=== PATIENT | female | born 1950 | race Caucasian/White ===

== ENCOUNTER 2016-12-15 08:33 | Inpatient (IN) | payer BC ==
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
[~2016-12-15 08:33] MED LIST: Buffered Lidocaine 1% SYRIN* 3 ML/SYR SYRINGE INTRADERM ONE; Dexamethasone IV* 4 MG/ML 1 ML (4 MG) IV SLOW PU ONE; Famotidine IV* 10 MG/ML 2 ML (20 mg) IV ONE
[2016-12-15] MEDS ORDERED: fentaNYL* 50 MCG/ML 2 ML VIAL (100 MCG VIAL) ONE ×3 (08:36→12:05)
[2016-12-15] MEDS ORDERED: HYDROmorphone* 1 MG/ML 1 ML SYR ONE ×2 (08:36→12:04)
[2016-12-15] MEDS ORDERED: Morphine PF AMP (0.5MG/ML)* 5 MG/10 ML AMP ONE (08:37)
[2016-12-15] MEDS ORDERED: Midazolam* 1 MG/ML 2 ML VIAL (2 MG) ONE (08:37)
[2016-12-15] MEDS ORDERED: Famotidine IV* 10 MG/ML 2 ML (20 mg) ONE (08:53)
[2016-12-15] MEDS ORDERED: Clindamycin 900 MG IVPREMIX(* 900 MG/50 ML SDV IV ONE (08:53)
[2016-12-15] MEDS ORDERED: Dexamethasone IV* 4 MG/ML 1 ML (4 MG) ONE (08:53)
[2016-12-15] MEDS ORDERED: KCL 10 MEQ/50 ML IVPREMIX* 10 MEQ/50 ML BAG IV ONE (10:58)
[2016-12-15] MEDS ORDERED: Propofol* 10 MG/ML 20 ML BTL IV PUSH ONE (13:54)
[2016-12-15] MEDS ORDERED: Dexmedetomidine* 200 MCG/2 ML 2 ML VIAL ONE (13:54)
[2016-12-15] MEDS ORDERED: Bupivacaine 0.5% SDV PF* 30 ML VIAL ONE (13:54)
[2016-12-15] MEDS ORDERED: DiMENhydriNATE IV* 50 MG/ML VIAL IV PUSH PRN ×2 (13:55→13:57)
[2016-12-15] MEDS ORDERED: Scopolamine 1.5 mg* PATCH TRANSDERM PRN (13:55)
[2016-12-15] MEDS ORDERED: diPHENhydraMINE IV* 50 MG/ML 1 ml VIAL (BENADRYL) IV PRN (13:55)
[2016-12-15] MEDS ORDERED: Nalbuphine* 20 MG/ML 1 ML VIAL IV PRN (13:55)
[2016-12-15] MEDS ORDERED: Scopolomine PATCH Remove* 1 NOTE MISC PATCH OFF PRN (13:55)
[2016-12-15] MEDS ORDERED: oxyCODONE/Acetamin 5/325 MG* TAB PO PRN (13:55)
[2016-12-15] MEDS ORDERED: Naloxone* 0.4 MG/ML 1 ML VIAL IV PRN (13:55)
[2016-12-15] MEDS ORDERED: Ondansetron INJ* 2 MG/ML VIAL IV PRN ×2 (13:55→13:57)
[2016-12-15] MEDS ORDERED: PROCHLORPERAZINE INJ 5 MG/ML 2 ML VIAL IV PRN ×2 (13:55→13:57)
[2016-12-15] MEDS ORDERED: fentaNYL* 50 MCG/ML 2 ML VIAL (100 MCG VIAL) IV PRN (13:57)
[2016-12-15] MEDS ORDERED: Acetaminophen TAB* 325 MG PO PRN (14:02)
[2016-12-15] MEDS ORDERED: LACTULOSE* 30 ML UDC PO PRN (14:02)
[2016-12-15] MEDS ORDERED: Bisacodyl SUPP* 10 MG SUPP PR PRN (14:02)
[2016-12-15] MEDS ORDERED: Magnesium Hydroxide LIQ* 30 ML UDC PO PRN (14:02)
[2016-12-15] MEDS ORDERED: Polyethylene Glycol 3350* 17 GM PACKET PO PRN (14:02)
[2016-12-15] MEDS ORDERED: Nitroglycerin TAB 0.4 MG* 0.4 MG TAB SL PRN (14:07)
[2016-12-15] MEDS ORDERED: Albuterol HFA INHALER* 8 gm MDI INH PRN (14:07)
--- NOTE | 2016-12-15 14:38 | RAD ---
Indication: Post op total knee replacement. Comparison: November 21, 2016 Technique: Portable AP and cross table lateral views LEFT knee. Report: Status post total knee replacement. Surgical drain in place. Post-op fluid and gas is seen in the joint space and anterior subcutaneous tissues. Alignment is anatomic. No periprosthetic fracture evident. IMPRESSION: Normal post-op appearance following total knee replacement.
[2016-12-15] MEDS ORDERED: Lisinopril TAB* 10 MG PO SCH (18:00)
[2016-12-15] MEDS ORDERED: Warfarin TAB(*) 6 MG PO ONE (18:30)
[2016-12-15] MEDS: Clindamycin 600 MG IVPREMIX(* 600 MG/50 ML SDV IV SCH (19:41)
[2016-12-15] MEDS: Atorvastatin* 80 MG TAB PO SCH (19:42)
[2016-12-15] MEDS: Docusate CAP* 100 MG PO SCH (19:42)
[2016-12-15] MEDS: Diltiazem CD CAP* 120 MG PO SCH (19:49)
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
[2016-12-16] MEDS ORDERED: diPHENhydraMINE IV* 50 MG/ML 1 ml VIAL (BENADRYL) IV PRN (03:45)
[2016-12-16] MEDS ORDERED: Ondansetron TAB* 4 MG PO PRN (03:45)
[2016-12-16] MEDS ORDERED: Morphine INJ* 2 MG/ML 1 ML SYRINGE IV PRN (03:45)
[2016-12-16] MEDS ORDERED: oxyCODONE TAB* 5 MG TAB PO PRN (03:45)
[2016-12-16] MEDS: Clindamycin 600 MG IVPREMIX(* 600 MG/50 ML SDV IV SCH ×2 (04:30→12:22)
[2016-12-16] MEDS: oxyCODONE/Acetamin 5/325 MG* TAB PO PRN ×4 (06:11→20:13)
--- NOTE | 2016-12-16 07:32 | PN ---
Progress Note - Progress Note SOAP: Subjective: Pt. is alert, pain is controlled. Objective: LLE - drain removed, tip intact with 350 cc ss drainage. distally +df/pf, full sens lt, 2+ dp pulse. Vital Signs: Temp Pulse Resp BP Pulse Ox 97.6 F 84 16 104/48 100 12/16/16 04:32 12/16/16 04:32 12/16/16 06:11 12/16/16 04:32 12/16/16 04:32 Laboratory Results - last 24 hr 12/15/16 12/15/16 10:17 10:44 INR (Anticoag Therapy) 1.07 Potassium 3.7 Assessment: 66 yo F pod 1 s/p LTKA Plan: wbat lle pt/ot will check am labs plan d/c to home tomorrow am coumadin with lovenox bridge
[2016-12-16 07:46] LABS: Hematocrit 28 % (35-47); Hemoglobin 9.8 g/dl (12.0-16.0)
[2016-12-16 08:01] LABS: BUN/Creatinine Ratio 21.6 (8-20); Calcium 8.7 mg/dL (8.6-10.3); EGFR African American 101.6 (>60); Potassium 3.8 mmol/L (3.5-5.0)
[2016-12-16] MEDS: Magnesium Oxide TAB* 400 MG PO SCH (08:50)
[2016-12-16] MEDS: Docusate CAP* 100 MG PO SCH ×2 (08:50→20:13)
[2016-12-16] MEDS: Diltiazem CD CAP* 120 MG PO SCH ×2 (08:50→20:13)
[2016-12-16] MEDS: Nitroglycerin 0.2 MG/HR PATCH* (5 MG) TRANSDERM SCH (08:50)
[2016-12-16] MEDS: Metoprolol Tartrate TAB* 50 mg PO SCH ×2 (08:50→09:47)
[2016-12-16] MEDS ORDERED: Spironolactone TAB* 25 MG PO SCH (09:00)
[2016-12-16] MEDS: Metoprolol Succinate XL TAB* 25 MG PO SCH (10:27)
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
[2016-12-16] MEDS: Spironolactone TAB* 25 MG PO SCH (12:21)
[2016-12-16] MEDS: Enoxaparin(*) 30 MG/0.3 ML SYR SUBCUT SCH (12:22)
[2016-12-16] MEDS ORDERED: Warfarin TAB(*) 4 MG PO ONE (17:00)
[2016-12-16] MEDS: Atorvastatin* 80 MG TAB PO SCH (20:12)
[2016-12-16] MEDS ORDERED: Nitro Patch/OINT Remove PATCH OFF SCH (21:00)
[2016-12-17] MEDS: oxyCODONE/Acetamin 5/325 MG* TAB PO PRN ×3 (01:46→13:54)
[2016-12-17 08:24] LABS: Hematocrit 28 % (35-47); Hemoglobin 9.7 g/dl (12.0-16.0)
--- NOTE | 2016-12-17 08:30 | PN ---
Progress Note - Progress Note SOAP: Subjective: Pt. is alert, reports feeling great. Objective: LLE - dressing changed, inc c/d/i. distally nvi. Vital Signs: Temp Pulse Resp BP Pulse Ox 98.0 F 80 17 101/62 98 12/17/16 07:06 12/17/16 07:06 12/17/16 07:06 12/17/16 07:06 12/17/16 07:06 Vital Signs: Temp Pulse Resp BP Pulse Ox 98.0 F 80 17 101/62 98 12/17/16 07:06 12/17/16 07:06 12/17/16 07:06 12/17/16 07:06 12/17/16 07:06 Laboratory Results - last 24 hr 12/17/16 12/17/16 08:05 08:05 Hgb 9.7 L Hct 28 L INR (Anticoag Therapy) 1.56 H Assessment: 66 yo F pod 2 s/p LTKA Plan: wbat pt/ot give lovenox dose today, 10 mg coumadin tonight. d/c to home today
[2016-12-17] MEDS: Docusate CAP* 100 MG PO SCH (08:42)
[2016-12-17] MEDS: Nitroglycerin 0.2 MG/HR PATCH* (5 MG) TRANSDERM SCH (08:42)
[2016-12-17] MEDS: Diltiazem CD CAP* 120 MG PO SCH (08:43)
[2016-12-17] MEDS: Spironolactone TAB* 25 MG PO SCH (08:44)
[2016-12-17] MEDS: Metoprolol Succinate XL TAB* 25 MG PO SCH (08:44)
[2016-12-17] MEDS: Magnesium Oxide TAB* 400 MG PO SCH (08:44)
[2016-12-17] MEDS ORDERED: Furosemide TAB* 40 MG PO SCH (09:00)
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
[2016-12-17] MEDS: Enoxaparin(*) 30 MG/0.3 ML SYR SUBCUT SCH (11:33)
[2016-12-17 12:43] VITALS: BP 106/65
--- NOTE | 2016-12-20 01:05 | DS ---
DISCHARGE SUMMARY: DATE OF ADMISSION: 12/15/16 DATE OF DISCHARGE: 12/17/16 ADMITTING DIAGNOSES: 1. Left knee osteoarthritis. 2. Chronic pain syndrome. 3. Peripheral artery disease. 4. Congestive heart failure. 5. Hyperlipidemia. 6. Hypertension. 7. Obstructive sleep apnea. DISCHARGE DIAGNOSES: 1. Status post left knee total arthroplasty. 2. Chronic pain syndrome. 3. Peripheral artery disease. 4. Congestive heart failure. 5. Hyperlipidemia. 6. Hypertension. 7. Obstructive sleep apnea. PROCEDURE: Left total knee arthroplasty. CONSULTANTS: 1. Physical Therapy. 2. Occupational Therapy. 3. Medicine. BRIEF HISTORY: Ms. Rogel is a 66-year-old female with severe degenerative osteoarthritis of her left knee. She failed conservative treatment measures and elected to undergo a left total knee arthroplasty on 12/15/[address] Jones. HOSPITAL COURSE: Ms. Rogel was admitted to [facility] on 12/15/16. She underwent an uncomplicated left total knee arthroplasty. Postoperatively, she recovered on the short-stay surgical unit. Her Grossman catheter was removed on postoperative day 1 and she was able to urinate on her own. The drain from the knee was also removed on postoperative day 1. Postoperative day 2, she was able to have a bowel movement and she advanced to regular diet without difficulty. The pain was well controlled with Percocet. She was restarted on home medications. Her vital signs and labs remained stable. She was able to bear her weight as tolerated on the left lower extremity. She advanced appropriately with physical therapy and occupational therapy. Her DVT prophylaxis was bridged with Lovenox and Coumadin until she reached therapeutic INR range. By postoperative day #2, she was orthopedically and medically stable for discharge home with services. PHYSICAL EXAMINATION: General: On examination, the patient is noted to be calm and cooperative in no acute distress. She is alert and oriented x3. Vital signs: On the day of discharge, temperature 98.0 degrees Fahrenheit, pulse rate 79, respirations 18, blood pressure 125/48. Extremities: Examination of the left lower extremity demonstrates a dressing overlying the left knee which is clean, dry and intact. There is mild swelling about the knee but it is compressible. Her calf is soft and nontender. Distally she has +2 palpable dorsalis pedis pulse, 5/5 ankle dorsiflexion, plantarflexion and strength. Sensation is intact to light touch. LABORATORY DATA: On the day of discharge, hemoglobin 9.7, hematocrit 28, INR 1.56. RADIOGRAPHS: Postoperative radiographs of the left knee demonstrate a left total knee arthroplasty with satisfactory prosthesis placement and no acute bony abnormalities. DISCHARGE MEDICATIONS: 1. Albuterol inhaler p.r.n. 2. Vitamin B12, 1000 mcg daily. 3. EpiPen as needed. 4. Aldactone 25 mg daily. 5. Magnesium oxide 400 mg daily. 6. Metoprolol ER 25 mg daily. 7. Diltiazem CD 120 mg twice a day. 8. Nitroglycerin 0.2 mg per hour to chest wall in the a.m. and removed prior to bedtime. 9. Lipitor 80 mg q.h.s. 10. Lasix 40 mg every other day. 11. Nitrostat 0.4 mg one every 5 minutes p.r.n. 12. Coenzyme Q10, 100 mg daily. 13. Cyanocobalamin 1000 mcg intramuscularly monthly. 14. Folic acid 100 mcg 1 tablet daily. 15. Percocet 5/325, 1 to 2 tabs p.o. q. 4 to 6 hours p.r.n. pain. 16. Coumadin dosage as directed. 17. Colace up to 3 times a day p.r.n. constipation. CONDITION ON DISCHARGE: Stable. DISCHARGE INSTRUCTIONS: Ms. Rogel is a 66-year-old female postoperative day 2, status post left total knee arthroplasty which was uncomplicated. She is orthopedically and medically stable to be discharged home with services. She has stable vital signs and labs and has been restarted on her home medications. She will take 10 mg of Coumadin tonight, which is Monday. Her target INR range is 2.5 to 3 secondary to cardiac issues. She will contact the office on Monday with an INR update. 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 At that time her dosage will be adjusted. Then we will plan on having her recheck her INR on Mondays and . She will remain weightbearing as tolerated on the left lower extremity. She will have home physical therapy twice a day. She will take Percocet for pain control and take Colace up to 3 times a day for constipation. She will follow up in the office with Dr. Jones in 10 to 14 days for incision check and suture removal. She was instructed to call Dr. Jones or go immediately to the emergency room should she develop any new fever, chills, incision pain, redness or drainage. She was instructed to go immediately to the emergency room should she develop chest pain or shortness of breath. KOURTNEY SINCLAIR [id number]/[facility] #: [id number] MANNY
== END 2016-12-17 14:50 | disposition home health service (06) | DRG 302 ==
LOC: AA 08:33 → SSU 14:02
PROVIDERS: ADMIT Orthopaedic Surgery Adult Reconstructive Orthopaedic Surgery; ATTEND Orthopaedic Surgery Adult Reconstructive Orthopaedic Surgery
PROC: 0SRD0J9 Replacement of Left Knee Joint with Synthetic Substitute, Cemented, Open Approach (ICD-10-PCS; principal; 2016-12-15 11:00)
DX: M17.12 Unilateral primary osteoarthritis, left knee (principal); I11.0 Hypertensive heart disease with heart failure; I50.32 Chronic diastolic (congestive) heart failure; G89.4 Chronic pain syndrome; K44.9 Diaphragmatic hernia without obstruction or gangrene; I73.9 Peripheral vascular disease, unspecified; E78.5 Hyperlipidemia, unspecified; K43.2 Incisional hernia without obstruction or gangrene; G47.33 Obstructive sleep apnea (adult) (pediatric); I25.10 Atherosclerotic heart disease of native coronary artery without angina pectoris; M25.762 Osteophyte, left knee; M85.88 Other specified disorders of bone density and structure, other site; Z85.44 Personal history of malignant neoplasm of other female genital organs; Z86.718 Personal history of other venous thrombosis and embolism; Z86.711 Personal history of pulmonary embolism; Z85.3 Personal history of malignant neoplasm of breast; I25.2 Old myocardial infarction; Z95.5 Presence of coronary angioplasty implant and graft; Z95.1 Presence of aortocoronary bypass graft; Z90.10 Acquired absence of unspecified breast and nipple; Z90.49 Acquired absence of other specified parts of digestive tract; Z90.710 Acquired absence of both cervix and uterus; Z88.0 Allergy status to penicillin; Z88.2 Allergy status to sulfonamides; Z88.1 Allergy status to other antibiotic agents; Z91.030 Bee allergy status; Z91.018 Allergy to other foods; Z82.49 Family history of ischemic heart disease and other diseases of the circulatory system; Z87.891 Personal history of nicotine dependence; Z87.442 Personal history of urinary calculi; Z86.14 Personal history of Methicillin resistant Staphylococcus aureus infection; Z79.01 Long term (current) use of anticoagulants
CPT/HCPCS: 36415; 80048; 84132; 85014; 85018; 85610; 88305; 88311; 94760; A9270-GY; C1776; J1100; J1170; J1650; J2250; J2704; J3010; J3480

== ENCOUNTER 2017-04-18 06:06 | Inpatient (IN) | payer MEDICARE, BC ==
--- NOTE | 2017-04-07 16:10 | HP ---
HISTORY AND PHYSICAL: DATE OF SURGERY: 04/18/17 DATE OF OFFICE VISIT: 04/07/17 SURGEON: Ivone Jones MD. PROCEDURE: Right total knee arthroplasty. CHIEF COMPLAINT: Right knee pain. HISTORY OF PRESENT ILLNESS: Ms. Rogel is a 66-year-old female with complaints of right knee pain se condary to severe osteoarthritis. She has failed conservative management, and has elected to procee d with the right total knee arthroplasty which is scheduled for 04/18/[address] Jones. PAST MEDICAL HISTORY: Sleep apnea, vulvar neoplasm, chronic pain, incisional hernia, history of DVT and PE, pernicious anemia, peripheral vascular disease, congestive heart failure, history of breast cancer, history of IN, aortic abnormality, high cholesterol, and hypertension. PAST SURGICAL HISTORY: CABG, heart stent placement, left hip ORIF, lumpectomy, mastectomy, carotid endarterectomy, hysterectomy, right shoulder surgery, bladder repair, cholecystectomy, aortofemoral bypass. CURRENT MEDICATIONS: 1. Lovenox 80 mg - 0.8 mL. 2. Vitamin B12. 3. Warfarin sodium 5 mg. 4. Lisinopril 2.5 mg daily. 5. EpiPen. 6. Aldactone 25 mg every day. 7. Magnesium oxide 400 mg daily. 8. Metoprolol 25 mg half tab daily. 9. Diltiazem 120 mg 2 tabs in the morning. 10. Nitroglycerin. 11. Lipitor 80 mg q.h.s. 12. Lasix 40 mg every other day. 13. Co Q 10. 14. Cyanocobalamin. 15. Folic acid. 16. Aspirin 81 mg daily. 17. ProAir HFA. 18. Benadryl. 19. CPAP. 20. Vitamin B12. 21. Albuterol sulfate as needed. ALLERGIES: PENICILLIN, SULFA antibiotics, DOXYCYCLINE, BEE STINGS, TUNA, and SHRIMP. FAMILY HISTORY: Aortic aneurysm, IN, stroke, and cancer. SOCIAL HISTORY: She is a 66-year-old female. She lives with her daughter while she is in [place]. She resides in [place]. She does not smoke or use drugs. REVIEW OF SYSTEMS: A complete 14-point review of systems was reviewed with the patient, it was posi tive for questionable stroke versus TIA 15 years ago, history of DVT/PE, pernicious anemia, and an M RSA infection. PHYSICAL EXAMINATION GENERAL: She is well-developed, well-nourished, in on acute distress. VITAL SIGNS: She stands 5 feet 2 inches tall, weighs a 160 pounds, her blood pressure is 110/62, he art rate 78. HEENT: Normocephalic, atraumatic. NECK: Supple. CARDIO: Regular rate and rhythm. Strong S1, S2. PULMONARY: The lungs are clear to auscultation bilaterally. ABDOMEN: Soft, nontender, nondistended. NEUROLOGIC: Alert and oriented x3. Cranial nerves II through XII are intact. MUSCULOSKELETAL: Right lower extremity, the skin is intact. There are no open wounds or abrasions. Tenderness over the medial and lateral joint line, 0 to 120 degrees flexion, 5/5 lower extremity s trength, 2+ dorsalis pedis pulses and intact sensation. ASSESSMENT AND PLAN: Ms. Rogel is a 66-year-old female with complaints of right knee pain secondar y to advanced osteoarthritis. She has failed conservative management, has elected to proceed with a right total knee arthroplasty, which is scheduled for 04/18/17. She has been cleared by both her ca rdiologist Dr. Zepeda and Eric Lopez for the procedure. Preoperatively she is on Coumadin. She has been given a prescription for Lovenox for bridge therapy. She will stop her Coumadin 5 days prior to the surgery, start Lovenox for 4 days, she will stop the injections 24 hours prior to this surger y. Upon discharge from the hospital, she can go back on her presurgery Coumadin dose and she can fo llowup with Dr. Jones 2 weeks after the surgery. KOURTNEY ARGUELLES [id number]/[facility] #: [id number]
[~2017-04-18 06:06] MED LIST changes: +Buffered Lidocaine 0.9% SYRIN* 5 ML/SYR SYRINGE INTRADERM ONE; +Buffered Lidocaine 0.9% SYRIN* 5 ML/SYR SYRINGE ONE; -Buffered Lidocaine 1% SYRIN* 3 ML/SYR SYRINGE INTRADERM ONE; +Clindamycin 900 MG IVPREMIX(* 900 MG/50 ML SDV IV ONE; -Dexamethasone IV* 4 MG/ML 1 ML (4 MG) IV SLOW PU ONE; +Famotidine IV* 10 MG/ML 2 ML (20 mg) ONE; +Metoclopramide TAB* 10 MG ONE; +Metoclopramide TAB* 10 MG PO ONE
[2017-04-18] MEDS ORDERED: fentaNYL* 50 MCG/ML 2 ML VIAL (100 MCG VIAL) ONE ×3 (06:59→09:13)
[2017-04-18] MEDS ORDERED: Ketorolac INJ* 30 MG/ML 1 ML VIAL ONE (06:59)
[2017-04-18] MEDS ORDERED: Midazolam* 1 MG/ML 5 ML VIAL (5 MG) ONE (06:59)
[2017-04-18] MEDS ORDERED: KETAMINE HCL* 50 MG/ML 10 ML VIAL ONE (06:59)
[2017-04-18] MEDS ORDERED: Ondansetron INJ* 2 MG/ML VIAL ONE ×2 (06:59→11:21)
[2017-04-18] MEDS ORDERED: Lidocaine 2% PF * 5 ML VIAL ONE (06:59)
[2017-04-18] MEDS ORDERED: Propofol* 10 MG/ML 20 ML BTL IV PUSH ONE (06:59)
[2017-04-18] MEDS ORDERED: Dexamethasone IV* 4 MG/ML 1 ML (4 MG) ONE (06:59)
[2017-04-18] MEDS ORDERED: Cisatracurium* 2 MG/ML MDV 5 ML ONE (07:36)
[2017-04-18] MEDS ORDERED: Scopolamine 1.5 mg* PATCH ONE (07:36)
[2017-04-18] MEDS ORDERED: EPHEDrine (Pressors)* 50 MG/ML VIAL ONE (07:44)
[2017-04-18] MEDS ORDERED: Bupivacaine 0.5% SDV PF* 30 ML VIAL ONE (08:04)
[2017-04-18] MEDS ORDERED: Phenylephrine IV* 40 MCG/ML 10 ML SYRINGE ONE (08:05)
[2017-04-18] MEDS ORDERED: Ondansetron INJ* 2 MG/ML VIAL IV PRN ×2 (08:45→10:26)
[2017-04-18] MEDS ORDERED: HYDROmorphone* 1 MG/ML 1 ML SYR IV PRN (08:45)
[2017-04-18] MEDS ORDERED: DiMENhydriNATE IV* 50 MG/ML VIAL IV PUSH PRN (08:45)
[2017-04-18] MEDS ORDERED: fentaNYL* 50 MCG/ML 2 ML VIAL (100 MCG VIAL) IV PRN (08:45)
[2017-04-18] MEDS ORDERED: HYDROmorphone* 1 MG/ML 1 ML SYR ONE ×3 (09:05→12:10)
[2017-04-18] MEDS ORDERED: Bisacodyl SUPP* 10 MG SUPP PR PRN (10:26)
[2017-04-18] MEDS ORDERED: Polyethylene Glycol 3350* 17 GM PACKET PO PRN (10:26)
[2017-04-18] MEDS ORDERED: Magnesium Hydroxide LIQ* 30 ML UDC PO PRN (10:26)
[2017-04-18] MEDS ORDERED: oxyCODONE TAB* 5 MG TAB PO PRN (10:26)
[2017-04-18] MEDS ORDERED: diPHENhydraMINE IV* 50 MG/ML 1 ml VIAL (BENADRYL) IV PRN ×2 (10:26→12:22)
[2017-04-18] MEDS ORDERED: Morphine INJ* 2 MG/ML 1 ML SYRINGE IV PRN (10:26)
[2017-04-18] MEDS ORDERED: traZODone TAB* 50 MG TAB PO PRN (10:26)
[2017-04-18] MEDS ORDERED: Nitroglycerin TAB 0.4 MG* 0.4 MG TAB SL PRN (10:36)
[2017-04-18] MEDS ORDERED: Albuterol HFA INHALER* 8 gm MDI INH PRN (10:36)
[2017-04-18] MEDS ORDERED: diPHENhydraMINE IV* 50 MG/ML 1 ml VIAL (BENADRYL) ONE (11:00)
[2017-04-18] MEDS ORDERED: diPHENhydraMINE IV* 25 MG in NS 0.9% 50 ML* 50 ML IVPB PRN (11:28)
--- NOTE | 2017-04-18 11:28 | RAD ---
HISTORY: Postop right knee arthroplasty COMPARISONS: November 21, 2016 VIEWS: 2, Frontal and lateral views of the right knee FINDINGS: BONE DENSITY: Normal. BONES: The patient is status post right knee arthroplasty. There is no hardware failure or osteolysis. JOINTS: The patient is status post right knee arthroplasty ALIGNMENT: There is no dislocation. SOFT TISSUES: Unremarkable. OTHER FINDINGS: None. IMPRESSION: STATUS POST RIGHT KNEE ARTHROPLASTY
[2017-04-18] MEDS ORDERED: Albuterol 2.5 MG/3 ML NEB.SOL* (0.083%) INH PRN (11:33)
[2017-04-18] MEDS: methylPREDNISolone SOD 40 MG* 1 ML VIAL IV SCH (13:02)
--- NOTE | 2017-04-18 15:11 | CONS ---
Cc: Dr. Contreras; Dr. Jones * CONSULTATION REPORT: DATE OF CONSULT: 04/18/17 PRIMARY CARE PROVIDER: Dr. Contreras. ATTENDING PHYSICIAN WHILE IN THE HOSPITAL: Lisa Godinez DO (report dictated by Elías Lewis NP). REQUESTING PHYSICIAN FOR CONSULT: Dr. Jones. REASON FOR CONSULT: Evaluation and medical management of comorbid medical problems. HISTORY OF PRESENT ILLNESS: I refer you to Dr. Jones's H and P for further details. In short, Mrs. Rogel is a 67-year-old female patient with multiple medical problems. She is a vasculopath, history of PE, DVT, sarcoidosis, CAD, COPD, chronic pain. She has a history of hyperlipidemia, hiatal hernia, SHAWNA, history of hypertension, she has a history of vulvar cancer, and history of 4 MIs. She presented to Dr. Jones's service in the outpatient setting complaining of worsening right knee pain. She was here in December and had the left knee replaced and the left knee was felt to be more severe. This was replaced first , however, and it was helping her but the right knee now is starting to bother her more. She was failing conservative management. She sought care with Dr. Jones and was scheduled for an elective total knee replacement today, which she underwent. She is evaluated in the PACU, she denies having any chest pain, she said she feels pretty drowsy. She unfortunately had to undergo general anesthesia. Her INR was just a touch too high for spinal anesthesia. She says that she feels a little lightheaded and is very drowsy and tired. She says her tongue feels a little bit bigger than normal. She denies having any trouble with secretions or swallowing or denies having any difficulty with breathing or any chest pain. Denies having any abdominal pain. She says her stomach feels a little nauseous. She denies having any pain except for the pain in her right knee. She says she has no pain currently. Because of her medical complexity, the hospitalist service was asked to evaluate in consult. PAST MEDICAL HISTORY: 1. PE. 2. DVT, recurrent. 3. Depression. 4. Peripheral vascular disease. 5. Sarcoidosis. 6. CAD. 7. CHF, last EF was 50% to 55%. 8. Chronic pain. 9. COPD. 10. Hyperlipidemia. 11. Hypertension. 12. Hiatal hernia. 13. SHAWNA. 14. Vulvar cancer. 15. History of HI. PAST SURGICAL HISTORY: 1. She has had an aortofemoral bypass. 2. Carotid endarterectomy. 3. CABG. 4. PCI. 5. Carotid stent. 6. She has had bladder repair. 7. She has had hip fracture repair on the right side. 8. Mastectomy. 9. Hysterectomy. 10. Cholecystectomy. 11. Left total knee replacement. 12. Right total knee replacement. MEDICATIONS: Home meds according to the list that she provided preoperatively includes: 1. Zetia 1 tablet p.o. at bedtime. 2. Warfarin 5 mg alternating with 2.5 mg per instructions. 3. Aldactone 25 mg daily. 4. Nitro 0.4 mg sublingual every 5 minutes x3. 5. Nitro patch 0.2 mg one patch transdermally q.a.m. 6. Metoprolol 12.5 mg p.o. q.a.m. 7. Magnesium oxide 400 mg p.o. daily. 8. Lisinopril 2.5 mg p.o. q.p.m. 9. Lasix 40 mg p.o. every other day. 10. Folic acid 1000 mcg p.o. daily. 11. Epinephrine 0.3 mg IM as needed. 12. Lovenox 80 mg subcu q.12 hours. 13. Benadryl 25 mg every 6 hours as needed. 14. Diltiazem 120 mg in the morning, 120 mg at bedtime. 15. B12 of 1000 mcg p.o. as directed. 16. B12 of 1000 mcg IM monthly. 17. Atorvastatin 80 mg daily. 18. Aspirin 81 mg daily. 19. Albuterol 1-2 puffs every 4 hours as needed. ALLERGIES: PENICILLIN, SULFA and DOXY. FAMILY HISTORY: Her mother had a history of cervical cancer, father had diabetes and hypertension. SOCIAL HISTORY: She is a former smoker, she quit in 1999. She rarely drinks alcohol. Surrogate decision is her daughter, Carleen. REVIEW OF SYSTEMS: There is no documented fever. She denied having any significant weight change. There was no double vision, no ear discharge. She denies having any rhinorrhea. No sore throat. No thyroid enlargement. Denies having any chest pain. There is no orthopnea. She denies having any nocturnal dyspnea. There was no abdominal pain. There was nausea, but no vomiting. No dysuria, no frequency, no seizure. No loss of consciousness. No pruritus and no skin ulcerations. Review of 14 systems completed, all others negative. PHYSICAL EXAM: Vital Signs: Blood pressure 110/72, pulse 80, respirations 14, O2 sat 100% on 4 L. Temperature 97.7. General: At this time, Mrs. Rogel is a 67- year-old female patient. She is chronically ill appearing. She is sitting in the PACU bed. She does not appear to be in acute distress. HEENT: Head is atraumatic. Eyes: EOMs intact. Sclerae anicteric. NECK: Supple. Throat: Oral mucosa appears to be moist. She does have an enlarged tongue and her lower lip also appears slightly enlarged as well. She had no stridor noted, no signs of airway obstruction, and she again was not drooling and she was swallowing well on my exam. No palpable lymphedema. No adenopathy was noted. Heart sounds S1, S2. Regular rate and rhythm. No murmurs, rubs or gallops. Lungs: Clear to auscultation bilaterally. No wheezes, rales or rhonchi. No stridor noted. Abdomen: Soft, flat. Nontender. Bowel sounds hypoactive. Extremities: Pulses were 2+ throughout. Distal CSM checks were intact to the right lower extremity. Neurologically, she is drowsy but she awakens to her name. She follows commands appropriately. She is oriented to person, time and place, but she falls asleep quickly. Her bpm analyst were equal. She is moving all 4 extremities with the exception of the right lower extremity, but she is able to move her other extremities. No gross focal deficits. Her skin is intact. She does, on the lower extremity, have an Yamil dressing with a Hemovac, which is clean, dry, and intact. DIAGNOSTIC STUDIES/LAB DATA: Preoperative WBC 9.9, RBC 4.36, hemoglobin 13.8, hematocrit 42, platelet count of 220, INR was 1.1 today. Sodium was 133, potassium 4.3, chloride 101, bicarb 25, BUN 16, creatinine 0.87, glucose was 94. Urine preop was negative. She did have a preop echo with Dr. Zepeda, which showed an EF 50% to 55%. She did have a preop EKG as well, which showed a normal sinus rhythm at the rate of 81. No ST elevations were noted or T-wave inversions. She did have a preop chest x-ray as well, which revealed no active cardiopulmonary disease. Old medical records were reviewed. ASSESSMENT: Mrs. Rogel is a 67-year-old female patient with multiple medical problems coming into our orthopedic service today for an elective right total knee replacement. We were asked to evaluate and consult. RECOMMENDATIONS: At this point are: 1. Status post right total knee replacement: Defer the management to Dr. Jones and her team. 2. Edematous tongue and lower lip: At this point, there was concern for reaction, but I do not see any other signs of urticaria, she does not have a stridor, she is currently not having any respiratory compromise. There is no drooling. I do not think that the airways are going to collapse, but because of her mentation and the fact she is falling asleep, I do worry that the tongue could have struck the airway. So I want to watch her closely in the ICU for at least 24 hours on p.r.n. Benadryl, standing steroids and in addition to this, standing Pepcid and I am going to put her on BiPAP as well for the time being because her respiratory rates were around 10. Again, I think as the Benadryl was given here in the PACU along with the anesthetics, I think as this stuff wears off, we will be able to liberate her from the BiPAP. We will follow her closely and monitor her closely in our intensive care for this reason. 3. History of pulmonary embolism and deep venous thrombosis: We will continue Lovenox, starting her Coumadin as soon as possible, which has already been ordered by Ortho. 4. Depression: Continue supportive care. 5. History of peripheral vascular disease: She is on an aspirin and statin, continue. 6. History of coronary artery disease: Continue the nitrates, the beta blockers, the diltiazem with hold parameters. The blood pressure is a little on the soft side and the systolics are in the one-teen area, so we will continue these with hold parameters. 7. History of congestive heart failure: We will continue her Lasix again with hold parameters. We will follow her closely. 8. Chronic pain: Narcotics have been made available by Orthopedics. 9. Chronic obstructive pulmonary disease: We will continue her albuterol as needed and monitor closely. 10. Hyperlipidemia: Continue statin therapy. 11. History of hiatal hernia: Follow with her primary. 12. Obstructive sleep apnea: She is going to be watched in the ICU for the first 24 hours. We will monitor her closely. 13. Hypertension: Continue meds as prescribed with the exception of the lisinopril. We will continue the beta remy, the diltiazem, and nitrates with hold parameters. 14. History of vulvar cancer: Follow with her primary. 15. DVT prophylaxis: Defer to the primary team. 16. Fluid and nutrition: I would recommend a heart healthy diet. TIME SPENT: Time spent on the consult was approximately 60 minutes, greater than half the time spent [id number] with the patient obtaining my history and physical; other half the time spent going over plan of care with the patient and implementing the plan of care. I did discuss the plan of care with my attending, Dr. Godinez, she is in agreement. ELÍAS LEWIS, JEFFERSON [id number]/[facility] #: [id number] MANNY
[2017-04-18] MEDS: Clindamycin 600 MG IVPREMIX(* 600 MG/50 ML SDV IV SCH ×2 (15:59→23:35)
[2017-04-18] MEDS: Cyanocobalamin TAB* 500 MCG PO SCH (16:02)
[2017-04-18] MEDS: Enoxaparin(*) 40 MG/0.4 ML SYR SUBCUT SCH (16:02)
[2017-04-18] MEDS ORDERED: Warfarin TAB(*) 6 MG PO ONE (17:00)
[2017-04-18] MEDS ORDERED: NON FORMULARY MED* (Lisinopril [Lisinopril 2.5 Mg-] 2.5 MG) PO SCH (18:00)
[2017-04-18] MEDS ORDERED: DILTIAZEM HCL 120 MG PO SCH ×2 (18:00)
[2017-04-18] MEDS: oxyCODONE/Acetamin 5/325 MG* TAB PO PRN ×2 (18:30→23:33)
[2017-04-18] MEDS ORDERED: PTO: Albuterol HFA INHALER* 8 gm MDI INH PRN (21:37)
[2017-04-18] MEDS: Diltiazem CD CAP* 120 MG PO SCH (22:01)
[2017-04-18] MEDS: Famotidine IV* 10 MG/ML 2 ML (20 mg) IV SLOW PU SCH (22:01)
[2017-04-18] MEDS: Atorvastatin* 80 MG TAB PO SCH (22:01)
[2017-04-18] MEDS: Docusate CAP* 100 MG PO SCH (22:01)
[2017-04-18] MEDS: Ferrous Sulfate TAB* 325 MG PO SCH (22:01)
[2017-04-18] MEDS: Nitro Patch/OINT Remove PATCH OFF SCH (22:13)
[2017-04-19] MEDS: methylPREDNISolone SOD 40 MG* 1 ML VIAL IV SCH (00:27)
--- NOTE | 2017-04-19 05:15 | OP ---
OPERATIVE NOTE: DATE OF OPERATION: 04/18/17 DATE OF : 54 SURGEON: Ivone Jones MD STRIPPER BLACK AND WHITE: KOURTNEY Bear Ms. Schmidt did help throughout the procedure with preparation of the leg, wound retraction, manipulation of the knee and wound closure. ANESTHESIOLOGIST: Dr. Liu. ANESTHESIA: General. PRE-OP DIAGNOSIS: Severe end-stage degenerative osteoarthritis of the right knee joint. POST-OP DIAGNOSIS: Severe end-stage degenerative osteoarthritis of the right knee joint. OPERATIVE PROCEDURE: Right total knee arthroplasty. COMPLICATIONS: None. TOURNIQUET TIME: 49 minutes. HARDWARE USED: This is Strauss [employer]hew cemented total knee arthroplasty hardware. Two packages of Simplex bone cement. For the femur, a size 4 narrow right posterior stabilized Oxinium Legion femoral component. For the tibia, size 3 tibial baseplate. For the patella, a 29-mm 3-peg hole poly patella and for the insert an 11-mm posterior stabilized articular insert. BRIEF HISTORY/INDICATIONS: Ms. Rogel is a 67-year-old female with years of increasingly severe right knee pain. Radiographs showed severe end-stage arthritis. She failed conservative treatment with anti-inflammatories, pain medications, intraarticular injections, and physical therapy. She elected to undergo right total knee arthroplasty due to continued pain and decreased quality of life. Informed consent was obtained from the patient. She understood the risks of surgery included, but were not limited to bleeding, infection, damage to nearby structures, continued pain, need for further surgery , intraoperative fracture, nerve palsy, hardware failure or loosening, stroke, heart attack, blood clot, and . She wished to proceed. ESTIMATED BLOOD LOSS: 200 cc. INTRAOPERATIVE FINDINGS: Intraoperatively, the patient was noted to have full- thickness cartilage loss along the patellofemoral and medial joint compartments. She had 10 degree flexion contracture to begin the case. Postop range of motion was full extension to 130 degrees of flexion. DESCRIPTION OF PROCEDURE: Ms. Rogel was identified in the preanesthesia unit. Her right lower extremity was marked as the correct operative side. Informed consent was signed and placed in the chart. The patient was taken to the operating room and placed under general anesthesia. A Grossman catheter was placed. Tourniquet was placed on the right thigh. The right lower extremity was prepped and draped in the usual sterile fashion. Preop time-out was made to correctly identify the patient's side and site. Appropriate perioperative antibiotics were given within 1 hour of incision. Tourniquet was inflated until tourniquet time for this procedure was 49 minutes. A 12-cm midline incision was made with a 10-blade in a midline fashion and carried down to the extensor mechanism. A new 10-blade was used to make a standard median parapatellar arthrotomy. Patella was subluxed laterally. Electrocautery was used to subperiosteally elevate the soft tissue off the superomedial tibia to the mid sagittal plane. The knee was flexed up. A drill was used to enter the distal femur. Anterior horn of the lateral meniscus and ACL were sharply released. Intramedullary distal femoral cutting guide was pinned into position. 9-mm of distal femur was carefully removed with an oscillating saw. External rotation guide was placed on the distal femur and the distal femur was sized to a size 4. A size 4 multi-cutting jig was pinned on the distal femur. Oscillating saw was used to make the appropriate 4 chamfer cuts. Any bony fragments were carefully removed. The PCL was completely released. The tibia was subluxed anteriorly. Extramedullary tibial cutting guide was pinned on the proximal tibia. The oscillating saw was used to make the proximal tibial cut perpendicular to the mechanical axis of the tibia. The bone was carefully removed. The knee was brought out into extension. A spacer block had excellent fit with the knee in full extension. Medial and lateral ligaments were well balanced. The flexion and extension gaps were well balanced. Next, the knee was flexed up. Lamina rn cardiac rehab was placed both medially and laterally. Any remaining meniscus was carefully removed using electrocautery. Curved osteotome was used to remove any posterior osteophytes. Right size 4 narrow femoral component femur and had good fit. The box for the posterior stabilized implant was prepared using a reamer and box cut osteotome. A size 3 tibial tray trial with an 11-mm insert trial was placed and the knee was taken through a range of motion. The knee had full extension to 130 degrees of flexion with good patellofemoral tracking. The patella was everted. A 9 mm of patellar bone and cartilage was carefully removed using an oscillating saw. The patella was sized to a size 29. The 3 peg holes were drilled through the size 29 guide. The trial 29 patella was placed and the knee was taken through a range of motion. There was satisfactory patellofemoral tracking. All trials were carefully removed. Tibia was subluxed anteriorly and sized to a size 3. The proximal tibia was prepared using a size 3 keel punch. Next, all bony cut surfaces were copiously irrigated with sterile saline and dried. The final implants were cemented into place starting with the tibia, followed by the femur and last the patella. An 11-mm insert trial was placed while the knee was brought out into full extension. The tourniquet was turned down at 49 minutes. The cement was allowed to fully cure. The knee was copiously irrigated with sterile saline. Electrocautery was used to obtain meticulous hemostasis. Once the cement had fully cured, the insert trial was removed. Any excess cement was carefully removed from around the implant and capsule. 10 cc of 0.5% Marcaine was used for some anesthesia around the posterior capsule. Final insert chosen was an 11-mm posterior stabilized articular insert , size 3-4. This was locked into position on the tibial tray without difficulty. The stability of the insert was checked and rechecked and noted to be stable. The knee was once again copiously irrigated with sterile saline. The extensor mechanism was closed over a medium Hemovac drain using interrupted #1 Vicryl. The rest of the incision was closed in a layered fashion using 0 and 2-0 Vicryls. Skin was closed using 3-0 nylon suture. Sterile Xeroform, 4x4s, and Webril were used to cover the incision. Yamil wrap and cold pack were placed over this. The patient's anesthesia was reversed without difficulty. She was taken to the PACU in stable condition. Intended weightbearing will be weightbearing as tolerated. Intended DVT prophylaxis will be Lovenox for 3 days followed by restart of her home Pradaxa. [id number]/[facility] #: [id number] MANNY
[2017-04-19 05:21] LABS: Hematocrit 29 % (35-47); Hemoglobin 9.6 g/dl (12.0-16.0); Mean Corpuscular HGB Conc 34 g/dl (31-36); Mean Corpuscular Hemoglobin 31 pg (27-31); Mean Corpuscular Volume 94 fL (80-97); Mean Platelet Volume 8 um3 (7.4-10.4); Red Blood Count 3.07 10^6/ul (4.0-5.4); Red Cell Distribution Width 14 % (10.5-15)
[2017-04-19] MEDS: oxyCODONE/Acetamin 5/325 MG* TAB PO PRN ×3 (05:24→22:33)
[2017-04-19 05:36] LABS: BUN/Creatinine Ratio 17.9 (8-20); Calcium 8.9 mg/dL (8.6-10.3); EGFR African American 95.3 (>60); EGFR Non-African American 74.1 (>60); Potassium 4.4 mmol/L (3.5-5.0)
[2017-04-19] MEDS: Clindamycin 600 MG IVPREMIX(* 600 MG/50 ML SDV IV SCH (06:36)
[2017-04-19] MEDS: Docusate CAP* 100 MG PO SCH ×2 (07:32→21:09)
[2017-04-19] MEDS: Nitroglycerin 0.2 MG/HR PATCH* (5 MG) TRANSDERM SCH (07:33)
[2017-04-19] MEDS: Metoprolol Succinate XL TAB* 25 MG PO SCH (07:33)
[2017-04-19] MEDS: Diltiazem CD CAP* 120 MG PO SCH ×2 (07:33→21:10)
[2017-04-19] MEDS: Spironolactone TAB* 25 MG PO SCH (07:33)
[2017-04-19] MEDS: Aspirin EC Low Dose* 81 MG TAB.EC PO SCH (07:33)
[2017-04-19] MEDS: Famotidine IV* 10 MG/ML 2 ML (20 mg) IV SLOW PU SCH ×2 (07:33→21:09)
[2017-04-19] MEDS: Ferrous Sulfate TAB* 325 MG PO SCH ×2 (07:34→21:09)
[2017-04-19] MEDS: Vitamin THERAPEUTIC TAB PO SCH (07:34)
--- NOTE | 2017-04-19 07:42 | PN ---
Progress Note - Progress Note Date of Service: 04/19/17 SOAP: Subjective: Pt. is alert, reports pain is well controlled. Denies sob/difficulty breathing/ cp. Objective: RLE - drain removed, tip intact, 350 cc ss drainage. distally +df/pf, full sens lt, 2+ dp pulse. Vital Signs: Temp Pulse Resp BP Pulse Ox 98.2 F 83 17 125/62 97 04/19/17 07:36 04/19/17 07:01 04/19/17 07:27 04/19/17 07:01 04/19/17 07:27 Laboratory Results - last 24 hr 04/19/17 04/19/17 04/19/17 05:13 05:13 05:13 WBC 12.0 H RBC 3.07 L Hgb 9.6 L Hct 29 L MCV 94 MCH 31 MCHC 34 RDW 14 Plt Count 143 L MPV 8 Neut % (Auto) 90.5 H Lymph % (Auto) 5.6 L [place] % (Auto) 3.5 Eos % (Auto) 0.1 Baso % (Auto) 0.3 Absolute Neuts (auto) 10.9 H Absolute Lymphs (auto) 0.7 L Absolute Monos (auto) 0.4 Absolute Eos (auto) 0 Absolute Basos (auto) 0 Absolute Nucleated RBC 0 Nucleated RBC % 0 INR (Anticoag Therapy) 1.08 Sodium 131 L Potassium 4.4 Chloride 103 Carbon Dioxide 24 Anion Gap 4 BUN 14 Creatinine 0.78 Est GFR ( Amer) 95.3 Est GFR (Non-Af Amer) 74.1 BUN/Creatinine Ratio 17.9 Glucose 150 H Calcium 8.9 Assessment: 67 yo F pod 1 s/p RTKA Plan: wbat rle 8 mg coumadin tonight, lovenox today pt/ot tx back to [facility] if medicine team agrees possible d/c to home 04/20 with vns
[2017-04-19] MEDS ORDERED: DILTIAZEM HCL 120 MG PO SCH (09:00)
[2017-04-19] MEDS ORDERED: Nitroglycerin 0.2 MG/HR PATCH* (5 MG) TRANSDERM SCH (09:00)
[2017-04-19] MEDS ORDERED: Metoprolol Succinate XL TAB* 25 MG PO SCH (09:00)
[2017-04-19] MEDS ORDERED: Spironolactone TAB* 25 MG PO SCH (09:00)
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
[2017-04-19] MEDS: Folic Acid TAB* 1 MG PO SCH (12:20)
[2017-04-19] MEDS: predniSONE TAB* 20 MG PO SCH (12:20)
[2017-04-19] MEDS: Magnesium Oxide TAB* 400 MG PO SCH (12:20)
[2017-04-19] MEDS: Cyanocobalamin TAB* 500 MCG PO SCH (16:33)
[2017-04-19] MEDS: Enoxaparin(*) 40 MG/0.4 ML SYR SUBCUT SCH (16:35)
[2017-04-19] MEDS ORDERED: Warfarin TAB(*) 4 MG PO ONE (17:00)
[2017-04-19] MEDS: Atorvastatin* 80 MG TAB PO SCH (21:09)
[2017-04-19] MEDS: Nitro Patch/OINT Remove PATCH OFF SCH (21:14)
[2017-04-20] MEDS: oxyCODONE/Acetamin 5/325 MG* TAB PO PRN ×2 (06:07→11:14)
[2017-04-20 06:17] LABS: Hematocrit 28 % (35-47); Hemoglobin 9.4 g/dl (12.0-16.0)
[2017-04-20] MEDS ORDERED: Furosemide TAB* 40 MG PO SCH ×2 (09:00)
[2017-04-20 10:29] VITALS: BP 135/66
--- NOTE | 2017-04-20 10:47 | PN ---
Progress Note - Progress Note Date of Service: 04/20/17 SOAP: Subjective: []Patient seen walking with Anita from PT, mastered all goals and is feeling well. She denies SOB, CP or dizziness. Her pain is well managed. She would like to go home this afternoon after lunch. Objective: [] Laboratory Results - last 24 hr 04/20/17 04/20/17 06:00 06:00 Hgb 9.4 L Hct 28 L INR (Anticoag Therapy) 1.71 H Vital Signs Temp 98.0 F 04/20/17 10:27 Pulse 77 04/20/17 10:27 Resp 18 04/20/17 10:27 BP 135/66 04/20/17 10:27 Pulse Ox 98 04/20/17 10:27 Intake & Output 04/19/17 04/20/17 04/20/17 18:59 06:59 18:59 Intake Total 460 1290 680 Output Total 950 1500 0 Balance -490 -210 680 Intake: Oral 460 1290 680 Output: Urine 525 1500 0 Grossman 425 Other: Date of Last Bowel 0 Movement # Bowel Movements 0 Right knee dressings where removed, moderate old bloody drainage on dressings, wound benign, no active drainage calf NT and soft +DF/PF right ankle sensation remains intact distally Assessment: []s/p Right total knee arthroplasty POD #2 Plan: []PT/OT WBAT RLE Begin usual pre op dose of Coumadin of 2.5 mg today and resume her regular dosages from here on out She will home monitor her INR Mondays and until her first post op visit with Dr. Jones and PCP will likely resume management. Follow up in 10- 14 days as scheduled in office with Dr. Jones
[2017-04-20] MEDS: Ferrous Sulfate TAB* 325 MG PO SCH (11:15)
[2017-04-20] MEDS: Aspirin EC Low Dose* 81 MG TAB.EC PO SCH (11:16)
[2017-04-20] MEDS: Docusate CAP* 100 MG PO SCH (11:16)
[2017-04-20] MEDS: Vitamin THERAPEUTIC TAB PO SCH (11:17)
[2017-04-20] MEDS: Spironolactone TAB* 25 MG PO SCH (11:19)
[2017-04-20] MEDS: predniSONE TAB* 20 MG PO SCH (11:20)
[2017-04-20] MEDS: Diltiazem CD CAP* 120 MG PO SCH (11:20)
[2017-04-20] MEDS: Metoprolol Succinate XL TAB* 25 MG PO SCH (11:22)
[2017-04-20] MEDS: Nitroglycerin 0.2 MG/HR PATCH* (5 MG) TRANSDERM SCH (11:24)
[2017-04-20] MEDS: Famotidine IV* 10 MG/ML 2 ML (20 mg) IV SLOW PU SCH (11:28)
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
[2017-04-20] MEDS: Magnesium Oxide TAB* 400 MG PO SCH (11:31)
[2017-04-20] MEDS: Folic Acid TAB* 1 MG PO SCH (11:31)
[2017-04-20] MEDS ORDERED: Warfarin TAB(*) 2.5 MG PO ONE (14:20)
[2017-04-20] MEDS: Cyanocobalamin TAB* 500 MCG PO SCH (14:46)
[2017-04-20] MEDS: Enoxaparin(*) 40 MG/0.4 ML SYR SUBCUT SCH (14:48)
--- NOTE | 2017-04-20 22:01 | DS ---
DISCHARGE SUMMARY: DATE OF ADMISSION: 04/18/17 DATE OF DISCHARGE: 04/20/17 ATTENDING PHYSICIAN: Ivone Jones MD * (DICTATED BY KOURTNEY CONTRERAS) ADMISSION DIAGNOSIS: Severe end-stage degenerative arthritis of the right knee joint. DISCHARGE DIAGNOSES: 1. Severe end-stage degenerative arthritis of the right knee joint. 2. Postoperative angioedema. SURGERY PERFORMED: Right total knee arthroplasty. HOSPITAL COURSE: The patient is a 67-year-old gentleman who has had increasingly severe right knee pain over the last several years. Her x-rays revealed severe end- stage osteoarthritis. She failed conservative management with anti-inflammatories, pain medications, intraarticular cortisone injection, and physical therapy. The patient elected to undergo surgical intervention and was taken to the operating room under the care of Dr. Ivone Jones for the aforementioned procedure on 04/18/17. She tolerated the procedure well and left the operating room in stable condition. However, it was noted that she had postoperative tongue and lip swelling. She was monitored overnight in the ICU and had BiPAP placed for this. She had no difficulties with breathing and was much improved after being placed on steroid taper. She was transferred to the floor on postoperative day #1 in the afternoon and had no further issues with tongue or lip swelling. She did not have any issues with shortness of breath. She progressed very well with her physical therapy and occupational therapy goals bearing weight as tolerated on the right lower extremity. It was felt that she was medically and orthopedically stable for discharge to home on date of 04/20/17. CONDITION ON DISCHARGE: Temperature 98.0, pulse 77, respiratory rate 18, O2 sat 98% on room air, blood pressure 135/66. Her hemoglobin is 9.4, hematocrit 28. Her INR is 1.71 on 04/20/17. PLAN: Discharge to home with VNS for wound checks. She will continue physical therapy exercises. She will receive Lovenox today and will receive 2.5 mg of Coumadin today, which is her usual Coumadin dose on . She will resume her usual Coumadin dosages from here on out that being 5 mg on 04/21/17 ; 5 mg on 04/22/17; and 2.5 mg on 04/23/17. She has a home INR reader where she monitors her own levels. She will do her INR checks on Mondays and and will call the office with results. Her primary care will also receive these results and will eventually take over and monitoring her INR. She is also instructed to finish a steroid taper as directed by KOURTNEY Crowell. She will follow up as scheduled in roughly 10 to 14 days in the office with Dr. Jones. If she has any difficulties with increased leg swelling, drainage, redness, fever, chills, calf pain or swelling, the office will be contacted prior to her scheduled appointment. If she has any difficulties with breathing, she is instructed to call 911. She has had no further difficulties since this noted swelling postoperative day #1. The patient understands all instructions. She also had a prescription of Percocet called into her pharmacy and has Colace medication at home to take while on the narcotic medication. KOURTNEY CONTRERAS [id number]/CPS #: [id number]
== END 2017-04-20 15:00 | disposition home health service (06) | DRG 470 ==
LOC: AA 06:06 → ICU 12:12 → SSU 04-19 10:04
PROVIDERS: ADMIT Orthopaedic Surgery Adult Reconstructive Orthopaedic Surgery; ATTEND Orthopaedic Surgery Adult Reconstructive Orthopaedic Surgery
PROC: 5A09357 Assistance with Respiratory Ventilation, Less than 24 Consecutive Hours, Continuous Positive Airway Pressure (ICD-10-PCS; 2017-04-18)
PROC: 0SRC0J9 Replacement of Right Knee Joint with Synthetic Substitute, Cemented, Open Approach (ICD-10-PCS; principal; 2017-04-18 07:30)
DX: M17.11 Unilateral primary osteoarthritis, right knee (principal); I11.0 Hypertensive heart disease with heart failure; I50.9 Heart failure, unspecified; J44.9 Chronic obstructive pulmonary disease, unspecified; G89.29 Other chronic pain; I25.10 Atherosclerotic heart disease of native coronary artery without angina pectoris; D86.9 Sarcoidosis, unspecified; G47.33 Obstructive sleep apnea (adult) (pediatric); E78.00 Pure hypercholesterolemia, unspecified; E78.5 Hyperlipidemia, unspecified; K43.2 Incisional hernia without obstruction or gangrene; F32.9 Major depressive disorder, single episode, unspecified; Z96.652 Presence of left artificial knee joint; T78.3XXA Angioneurotic edema, initial encounter; T88.7XXA Unspecified adverse effect of drug or medicament, initial encounter; Z90.710 Acquired absence of both cervix and uterus; Z90.10 Acquired absence of unspecified breast and nipple; Z86.718 Personal history of other venous thrombosis and embolism; Z86.711 Personal history of pulmonary embolism; Z85.3 Personal history of malignant neoplasm of breast; I25.2 Old myocardial infarction; Z95.5 Presence of coronary angioplasty implant and graft; Z95.1 Presence of aortocoronary bypass graft; Z88.0 Allergy status to penicillin; Z88.2 Allergy status to sulfonamides; Z88.1 Allergy status to other antibiotic agents; Z91.030 Bee allergy status; Z91.013 Allergy to seafood; Z82.49 Family history of ischemic heart disease and other diseases of the circulatory system; Z82.3 Family history of stroke; Y92.9 Unspecified place or not applicable; Z83.3 Family history of diabetes mellitus; Z85.89 Personal history of malignant neoplasm of other organs and systems; Z80.8 Family history of malignant neoplasm of other organs or systems; Z87.891 Personal history of nicotine dependence
CPT/HCPCS: 36415; 80048; 85014; 85018; 85025; 85610; 87641; 94660; 94760; 99406; A9270-GY; C1776; J1100; J1170; J1200; J1650; J1885; J2250; J2405; J2704; J2920; J3010; J7512

== ENCOUNTER 2022-06-30 12:45 | Inpatient (IN) ==
[2022-09-22] MEDS ORDERED: Buffered Lidocaine 1% SYRIN 1 ml INTRADERM ONE (06:00)
[2022-09-22] MEDS ORDERED: Lactated Ringers 1000 ml BAG 1,000 ML IV SCH (06:00)
[2022-09-22] MEDS ORDERED: Propofol 0 MG/0 ML BTL ONE (07:11)
[2022-09-22] MEDS ORDERED: Ondansetron 4 mg VIAL 2 MG/ML 2 ml VIAL ONE (07:11)
[2022-09-22] MEDS ORDERED: Lidocaine 2% PF 5 ML VIAL ONE (07:11)
[2022-09-22] MEDS ORDERED: Dexamethasone IV 4 MG/ML VIAL 1 ml VIAL ONE (07:11)
[2022-09-22] MEDS ORDERED: Phenylephrine IV 10 MG/ML 1 ml VIAL ONE (07:11)
[2022-09-22] MEDS ORDERED: Midazolam 2 mg/2 ml VIAL 1 mg/ml 2 ml VIAL (2 mg) ONE ×2 (07:12)
[2022-09-22] MEDS ORDERED: Clindamycin 900 MG/D5W BAG 0 MG/0 ML BAG IVPB ONE (08:32)
[2022-09-22 08:49] LABS: Hematocrit 40 % (35-47); Hemoglobin 13.4 g/dL (12.0-16.0)
[2022-09-22 09:14] LABS: INR 1.17 (0.88-1.18)
[2022-09-22 09:18] VITALS: BP 124/74
[2022-09-22 09:29] LABS: Calcium 9.1 mg/dL (8.6-10.3); Creatinine, Serum 1.22 mg/dL (0.51-0.95); Potassium 4.2 mmol/L (3.5-5.0); eGFR CKD-EPI 47.7 (>60)
[2022-09-22] MEDS ORDERED: Flumazenil 0.5 mg/5 ml 0.1 MG/ML 5 ml VIAL ONE (10:56)
[2022-09-22] MEDS ORDERED: Midazolam 5 mg/5 ml VIAL 1 mg/ml 5 ml VIAL (5 mg) ONE (10:56)
== END 2022-09-22 14:40 | disposition home or self-care (01) | DRG 554 ==
LOC: AA 09-22 07:51
PROVIDERS: ADMIT Orthopaedic Surgery Adult Reconstructive Orthopaedic Surgery; ATTEND Orthopaedic Surgery Adult Reconstructive Orthopaedic Surgery

== ENCOUNTER 2022-09-30 10:57 | Inpatient (IN) ==
[~2022-09-30 10:57] MED LIST changes: -Buffered Lidocaine 0.9% SYRIN* 5 ML/SYR SYRINGE INTRADERM ONE; -Buffered Lidocaine 0.9% SYRIN* 5 ML/SYR SYRINGE ONE; +Buffered Lidocaine 1% SYRIN 1 ml INTRADERM ONE; -Clindamycin 900 MG IVPREMIX(* 900 MG/50 ML SDV IV ONE; +Clindamycin 900 MG/D5W BAG 900 MG/50 ML BAG IVPB ONE; -Famotidine IV* 10 MG/ML 2 ML (20 mg) IV ONE; -Famotidine IV* 10 MG/ML 2 ML (20 mg) ONE; +Lactated Ringers 1000 ml BAG 1,000 ML IV SCH; -Metoclopramide TAB* 10 MG ONE; -Metoclopramide TAB* 10 MG PO ONE
[2022-09-30] MEDS ORDERED: Rocuronium 50 mg VIAL 10 mg/ml 5 ml VIAL (50 mg) ONE (12:23)
[2022-09-30] MEDS ORDERED: Ondansetron 4 mg VIAL 2 MG/ML 2 ml VIAL ONE ×2 (12:23→18:33)
[2022-09-30] MEDS ORDERED: Dexamethasone IV 4 MG/ML VIAL 1 ml VIAL ONE (12:23)
[2022-09-30] MEDS ORDERED: Lidocaine 2% PF 5 ML VIAL ONE (12:23)
[2022-09-30] MEDS ORDERED: Propofol 10 MG/ML 20 ML BTL ONE (12:23)
[2022-09-30] MEDS ORDERED: HYDROmorphone 0.5 MG/0.5 ML SYRINGE ONE ×2 (12:23→14:45)
[2022-09-30] MEDS ORDERED: Midazolam 2 mg/2 ml VIAL 1 mg/ml 2 ml VIAL (2 mg) ONE (12:24)
[2022-09-30] MEDS ORDERED: Sodium Chloride 0.9% 10 ML ONE ×2 (13:21→13:23)
[2022-09-30] MEDS ORDERED: Phenylephrine IV 10 MG/ML 1 ml VIAL ONE (13:55)
[2022-09-30] MEDS ORDERED: ROPIVACAINE 5 MG/ML 30 ML BTL (0.5%) ONE (14:36)
[2022-09-30] MEDS ORDERED: Naloxone 0.4 mg VIAL 0.4 mg/ml 1 ml VIAL IV PRN (15:20)
[2022-09-30] MEDS ORDERED: Ondansetron 4 mg VIAL 2 MG/ML 2 ml VIAL IV PRN ×2 (15:20→16:56)
[2022-09-30] MEDS ORDERED: HYDROmorphone 1 MG/1 ML SYRINGE IV PRN ×2 (15:20→16:33)
[2022-09-30] MEDS ORDERED: fentaNYL 100 mcg/2 ml 50 MCG/ML VIAL IV PRN (15:20)
[2022-09-30] MEDS ORDERED: Acetaminophen IV 1 GM/100ML 1,000 MG/100 ML BAG IV ONE (16:04)
[2022-09-30] MEDS ORDERED: Ondansetron ODT 4 mg TAB 4 MG TAB PO PRN (16:56)
[2022-09-30] MEDS ORDERED: Lactulose 30 ml UDC PO PRN (16:56)
[2022-09-30] MEDS ORDERED: Morphine 2 MG/ML SYRINGE IV PRN (16:56)
[2022-09-30] MEDS ORDERED: Magnesium Hydroxide LIQ 30 ML UDC PO PRN (16:56)
[2022-09-30] MEDS ORDERED: Clindamycin 600 MG/D5W BAG 600 MG/50 ML BAG IV SCH (17:00)
[2022-09-30] MEDS ORDERED: Lactated Ringers 1000 ml BAG 1,000 ML IV SCH (17:00)
[2022-09-30] MEDS ORDERED: HYDROmorphone 1 MG/1 ML SYRINGE ONE (18:55)
[2022-09-30] MEDS: Magnesium Hydroxide LIQ 30 ML UDC PO SCH (20:38)
[2022-09-30] MEDS ORDERED: Scopolamine 1 mg/72hr PATCH TRANSDERM SCH (21:00)
[2022-09-30] MEDS: Clindamycin 600 MG/D5W BAG 600 MG/50 ML BAG IV SCH (22:35)
[2022-10-01] MEDS: Clindamycin 600 MG/D5W BAG 600 MG/50 ML BAG IV SCH ×2 (05:26→13:19)
[2022-10-01 06:03] LABS: Hematocrit 31 % (35-47); Hemoglobin 10.4 g/dL (12.0-16.0)
[2022-10-01 06:15] LABS: Calcium 8.4 mg/dL (8.6-10.3); Creatinine, Serum 1.34 mg/dL (0.51-0.95); Potassium 4.6 mmol/L (3.5-5.0); eGFR CKD-EPI 42.7 (>60)
[2022-10-01 06:39] LABS: Mean Platelet Volume 9.6 fL (7.4-10.4); Platelet Count 90 10^3/uL (150-450)
[2022-10-01] MEDS: Magnesium Hydroxide LIQ 30 ML UDC PO SCH (08:19)
[2022-10-01] MEDS ORDERED: Vitamin THERAPEUTIC TAB PO SCH (09:00)
[2022-10-01 11:29] VITALS: BP 101/53
== END 2022-10-01 15:13 | disposition home or self-care (01) | DRG 470 ==
LOC: OBSVTOIN 10:57 → INTOOBSV 10:57 → AA 10:57 → SSU 19:58
PROVIDERS: ADMIT Orthopaedic Surgery Adult Reconstructive Orthopaedic Surgery; ATTEND Orthopaedic Surgery Adult Reconstructive Orthopaedic Surgery